=== PATIENT | male | born 1980 | race Caucasian/White ===

== ENCOUNTER 2022-02-21 02:45 | Emergency (ER) | payer BC, SELFPAY ==
[2022-02-21 02:50] VITALS: BP 122/78; PULSE 84; RESP 16; TEMP 36.1; O2SAT 95
--- NOTE | 2022-02-21 03:30 | CRLHL7_ITS ---
For Patients: As a result of the Century Cures Act, medical imaging exams and procedure reports are released immediately into your electronic medical record. You may view this report before your referring provider. If you have questions, please contact your health care provider. INDICATION: pain after fall mid upper TECHNIQUE: 2-view left tibia and fibula. COMPARISON: none FINDINGS: The knee and ankle are anatomically aligned. There is no evidence of a fracture or intrinsic bone lesion within the tibia and fibula. The soft tissues appear normal. IMPRESSION: Negative left tibia and fibula. Dictated by Pierce Garcia MD @ 02/22/2022 9:06:07 AM (Electronically Signed)
--- NOTE | 2022-02-21 03:30 | CRLHL7_ITS ---
For Patients: As a result of the Cures Act, medical imaging exams and procedure reports are released immediately into your electronic medical record. You may view this report before your referring provider. If you have questions, please contact your health care provider. Indication: fall with knee pain and effusion Technique: Left knee 2 views Comparison: None Findings: Bones: Alignment is normal. No fractures or bone lesions. Joint spaces: Joint spaces are well maintained. No degenerative changes. No sign of joint effusion. Soft tissues: Unremarkable. Impression: No sign of acute fracture. Dictated by Pierce Garcia MD @ 02/22/2022 9:09:03 AM (Electronically Signed)
--- OUTSIDE RECORDS SUMMARY | 2022-02-21 03:42 | XMS_ITS | Clinical Summary ---
:1980 Author Organization [employer] [facility] [place] [address] Care Team Providers Name Role Phone Joni Mcgraw MD Primary Care Provider Allergies Active Allergy Reactions Severity Noted Date Comments Unlisted Allergen (Include Detail In 10/2009 Seasonal allergies Comments) Medications Medication Sig Dispensed Refills Start Date End Date Status fexofenadine Take 1 tablet by 90 tablet 3 01/23/2010 Active (DENISE) 180 mg mouth once daily tablet with a meal. mometasone, 50 mcg Inhale 1 [place] into 3 canister 3 01/23/2010 Active each actuation, both nostrils once nasal (NASONEX) 50 daily. mcg/Actuation nasal spray EPINEPHrine (EPIPEN) Inject 0.3 mg 2 Each 0 02/18/2021 Active 0.3 mg/0.3 mL intramuscular one injectionIndications time if needed for : Bee sting Allergic Reaction reaction, accidental for up to 2 doses. or unintentional, initial encounter traMADoL (ULTRAM) 50 Take 1 Tablet (50 15 Tablet 0 04/17/2021 Active mg mg) by mouth 3 tabletIndications: times daily if Lumbar radiculopathy needed for Pain. tiZANidine Take 1 Tablet (4 45 Tablet 1 06/19/2021 A ctive (ZANAFLEX) 4 mg mg) by mouth every tabletIndications: 8 hours if needed Lumbar radiculopathy for Muscle Spasm. Active Problems No known active problems Encounters Date Type Specialty Care Team Description 12/25/2021 Transcribe Orders Joni Mcgraw MD from Last 3 Months Family History Medical History Relation Name Comments No Known Problems Father No Known Problems Mother Relation Name Status Comments Father Alive Mother Alive Social History Tobacco Use Types Packs/Day Years Used Date Never Smoker Smokeless Tobacco: Never Used Alcohol Use Standard Drinks/Week Comments Not Asked 0 (1 standard drink = 0.6 oz pure alcoho l) Sex Assigned at Date Recorded Not on file Obstetrics History Last Filed Vital Signs Vital Sign Reading Time Taken Comments Blood Pressure 122/76 03/02/2021 7:54 AM CDT Pulse 70 02/18/2021 6:30 PM CDT Temperature 36.9 ??C (98.5 ??F) 02/18/2021 5:17 PM CDT Respiratory Rate 24 02/18/2021 5:17 PM CDT Oxygen Saturation 98% 02/18/2021 6:30 PM CDT Inhaled Oxygen Concentration - - Weight 88.4 kg (194 lb 14.4 oz) 02/18/2021 5:17 PM CDT Height 185.4 cm (6' 1) 02/18/2021 5:17 PM CDT Body Mass Index 25.71 02/18/2021 5:17 PM CDT Plan of Treatment Health Maintenance Due Date Last Done Comments COVID-19 vaccine series (#1) 02/23/1982 Tdap 1992 Depression screening for age 12+ 1993 BMI (ht and wt on same day) for age 18+ 08/24/1999 Hepatitis C screening for age 18-79 08/24/1999 Tetanus booster 2001 Lipids for age 35-44 2016 Influenza for age 9-49 01/28/2022 Results Not on filefrom Last 3 Months Insurance Payer Benefit Plan / Subscriber ID Effective Dates Phone Addre ss Type Group [employer] BL[employer] OF [id number] 2018-Present [address] [address] [place] [address] [facility] Occ Employer 05/30/2000 ATTN [employer] [facility] (Home) [place] [id number] [address] [address] (Work) [place] [address] 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
--- NOTE | 2022-02-21 04:45 | ED.LOWEXIN ---
HPI - Extremity Injury (Lower) General Chief Complaint: Extremity Pain/Injury, Lower Stated Complaint: Left Leg Pain Time Seen by Provider: 02/21/22 03:21 History of Present Illness HPI Narrative: 41-year-old man presenting to the emergency department with complaint of left leg pain. Pain in particular is in the upper outer aspect of the lower left leg. Feels like there is some tingling is down into his foot as well. Evidently slid down 10 ft of stairs somewhat on his left leg outer aspect and landed achieving an axial load on the left leg. Slid down with the stairs striking the outer lower left leg. Sore in his hip as well. No head or back injury. No loss of consciousness. Related Data Previous Rx's Medication Instructions Recorded tramadol 50 mg tablet 50 - 100 mg PO QDAY PRN pain #30 02/05/22 tabs tizanidine 4 mg capsule 4 mg PO TID PRN muscle spasticity 02/08/22 #60 caps Allergies Allergy/AdvReac Type Severity Reaction Status Date / Time No Known Drug Allergies Allergy Verified 02/21/22 02:56 Review of Systems Status of ROS: Reports: 6 or more systems reviewed and unremarkable except as noted in History and below [facility] Medical History (Updated 02/21/22 @ 06:02 by Pierce Castro MD) Muscle spasm Pain Social History Non-prescribed substance use: denies use Exam Narrative: Exam Narrative: Pleasant. Able to ambulate with discomfort. Breathing easily. Skin is warm and dry. Extensively tattooed. Head is atraumatic. Hip and back not particularly tender to palpation. Moving all extremities without difficulty though limping on his left leg. Palpation of the lower left leg does reveal good deal of tenderness but not particular tenseness. Intact distal sensation. Able to flex and extend at the knee ambulation does seem to cause more discomfort. Negative Dc's. No laxity appreciated to varus or valgus stressors. Mild effusion no erythema. No patellar apprehension Const: Vital Signs, click to edit/add: Vital Signs - 24 hr 02/21/22 02:50 Temperature 97.0 F L Pulse Rate [Left P ulse Oximeter] 84 Respiratory Rate 16 Blood Pressure [Ri ght Upper Arm] 122/78 Pulse Oximetry 95 Oxygen Delivery Me thod Room Air Documenting provider has reviewed patient's vital signs: yes Course Course Hospital Course: Initially did not feel need intervention for pain but over time in the emergency department felt like more pain settled in and that he was going to be having a hard time sleeping due to pain. Increasingly antalgic gait. Vital Signs Vital signs: Initial Vital Signs Temperature 97.0 F L 02/21/22 02:50 Temperature Source Temporal Artery Scan 02/21/22 02:50 Pulse Rate 84 02/21/22 02:50 Pulse Rhythm 02/21/22 02:50 Respiratory Rate 16 02/21/22 02:50 Blood Pressure 122/78 02/21/22 02:50 Blood Pressure Mean 92 02/21/22 02:50 Blood Pressure Position Sitting 02/21/22 02:50 Pulse Oximetry 95 02/21/22 02:50 Oxygen Delivery Method 02/21/22 02:50 Vital Signs Temperature 97.0 F L 02/21/22 02:50 Pulse Rate 84 02/21/22 02:50 Respiratory Rate 16 02/21/22 02:50 Blood Pressure 122/78 02/21/22 02:50 Pulse Oximetry 95 02/21/22 02:50 Oxygen Delivery Method 02/21/22 02:50 Temperature 97.0 F L 02/21/22 02:50 Pulse Rate 81 02/21/22 05:55 Respiratory Rate 16 02/21/22 02:50 Blood Pressure 122/78 02/21/22 02:50 Pulse Oximetry 98 02/21/22 05:55 Oxygen Delivery Method 02/21/22 05:55 MDM - Extremity Injury (Lower) MDM Narrative Medical decision making narrative: Would have concerns in particular tibial plateau fracture although of flexes and extends his knee without the kind of pain I would expect. Also some symptoms not inconsistent with compartment syndrome but more likely representing some trauma or irritation at least to the fibular nerve. I personally review X-rays of knee and tib-fib which look to be absent of acute bony abnormality. Medical Records Attestation: I reviewed the patient's medical records. Discharge Plan Discharge Clinical Impression: Hematoma of left lower leg, Knee sprain Patient Disposition: Home, Self-Care Condition: Stable Additional Instructions: I like those old-fashioned ice packs, the screw top ice packs to fill with ice and water. Can buy in the pharmacy. Be careful with the upper outer aspect of your left leg as can freeze the fibular nerve. I do think though that I would try to ice the areas that hurt especially your knee 2-3 times daily over the next few days. Wear the knee immobilizer for comfort over the next few days. Try to limit ambulation. Can take up to 800 mg of ibuprofen per dose or alternatively up to 500 mg of naproxen 2 times daily. Either may be combined with up to 1000 mg of acetaminophen per dose. Remember that each tablet of [place] received here from [employer] has 325 mg of acetaminophen in it. Follow up if not improved in a week. Prescriptions: No Action tramadol 50 mg tablet 50 - 100 mg PO QDAY PRN (Reason: pain) Qty: 30 0RF tizanidine 4 mg capsule 4 mg PO TID PRN (Reason: muscle spasticity) Qty: 60 0RF Follow Up/Referrals: Joni Mcgraw MD [Primary Care Provider] - Stand Alone Forms: [employer] [facility] Info Instructions
[2022-02-21 05:55] VITALS: PULSE 81; O2SAT 98
== END 2022-02-21 06:36 | disposition home or self-care (01) ==
PROVIDERS: Emergency Provider Family Medicine; PCP Internal Medicine
DX: S80.12XA Contusion of left lower leg, initial encounter (principal); W10.9XXA Fall (on) (from) unspecified stairs and steps, initial encounter
CPT/HCPCS: 73560; 73590; 99283; 99284

== ENCOUNTER 2022-06-23 15:06 | Outpatient (CLI) | payer BC, SELFPAY ==
--- NOTE | 2022-06-23 15:30 | CRLHL7_ITS ---
For Patients: As a result of the Century Cures Act, medical imaging exams and procedure reports are released immediately into your electronic medical record. You may view this report before your referring provider. If you have questions, please contact your health care provider. INDICATION: Chronic low back pain. TECHNIQUE: Noncontrast sagittal and axial T1, T2, and sagittal STIR sequences are provided. Compared to prior study from July 24, 2009. FINDINGS: The overall stature, alignment and intrinsic marrow signal of the lumbar spine is within normal limits. Conus is normal. L4-5: Interval development of a minimal broad-based posterior disc bulge resulting in mild bilateral lateral recess narrowing with contact of the traversing L5 nerve root. No central canal or foraminal narrowing. L5-S1: Stable posterior central disc herniation extends approximately 6 millimeters beyond the posterior vertebral body margin resulting in stable contact of the traversing S1 nerve roots no significant central canal narrowing. Interval development of mild bilateral foraminal narrowing. Remainder of the lumbar spine is unremarkable, specifically no evidence of suspicious central canal or foraminal narrowing. IMPRESSION: 1. Stable discogenic degenerative change at L5-S1 resulting in contact of the traversing S1 nerve roots with interval development of mild bilateral foraminal narrowing. 2. Interval development a minimal broad-based posterior disc bulge at L4-5 resulting in mild bilateral lateral recess narrowing contact of the traversing L5 nerve roots. Dictated by Bran Price MD @ 06/23/2022 4:39:21 PM (Electronically Signed)
== END 2022-06-23 15:07 | disposition home or self-care (01) ==
LOC: MRI 15:07
PROVIDERS: PCP Internal Medicine; Visit Provider Internal Medicine
DX: M54.50 Low back pain, unspecified (principal); M51.26 Other intervertebral disc displacement, lumbar region
CPT/HCPCS: 72148

== ENCOUNTER 2022-07-09 10:02 | Outpatient (CLI) | payer BC, SELFPAY | END 2022-07-09 10:03 | disposition home or self-care (01) | LOC: OP CLINIC 10:03 | PROVIDERS: PCP Internal Medicine; Visit Provider Internal Medicine | DX: R19.5 Other fecal abnormalities (principal); K62.1 Rectal polyp | CPT/HCPCS: 45385; 88305; J2250; J3010 ==

== ENCOUNTER 2025-04-10 13:25 | Outpatient (CLI) | payer BC, SELFPAY | END 2025-04-10 13:26 | disposition home or self-care (01) | LOC: NFLDREF 04-25 13:48 | PROVIDERS: PCP Internal Medicine; Referring Provider Internal Medicine; Visit Provider Internal Medicine | DX: M54.50 Low back pain, unspecified (principal) | CPT/HCPCS: 80053; 80061; 87086 ==